=== PATIENT | female | born 1990 | race Caucasian/White ===

== ENCOUNTER → 2023-03-22 12:22 | Outpatient (CLI) | payer OTHER, SELFPAY ==
--- NOTE | 2023-03-22 | DI.US.S_ITS ---
PROCEDURE: US SOFT TISSUE HEAD AND NECK INDICATIONS: NECK LUMP TECHNIQUE: Real-time scanning was performed of the neck region of interest, with image documentation. COMPARISON: None. FINDINGS: There are 2 lumps felt in the neck. In the right lateral neck, there is a hypoechoic well-circumscribed ovoid lesion measuring 0.6 x 0.2 x 0.5 cm. No discrete echogenic hilum. No significant internal vascularity. In the left anterolateral neck, there is an isoechoic, well circumscribed ovoid lesion measuring 1.3 x 0.4 x 1.4 cm with no significant internal vascularity. IMPRESSION: 1. Right lateral neck palpable abnormality appears benign and likely corresponds to a normal lymph node. The characteristic echogenic hilum is not well seen; therefore, if the palpable abnormality persists, consider a repeat ultrasound in 1 month with cine clip to document stability. 2. Left anterolateral neck palpable abnormality likely corresponds to a benign lipoma/subcutaneous fat deposit. No suspicious features. Dictated by: Dez Carrington M.D. on 03/22/2023 at 14:20 Approved by: Dez Carrington M.D. on 03/22/2023 at 14:28
== END ==
PROVIDERS: Referring Provider Naturopath; Visit Provider Naturopath
DX: R22.1 Localized swelling, mass and lump, neck (principal)
CPT/HCPCS: 76536

== ENCOUNTER 2023-10-03 07:08 | Day surgery (SDC) | payer OTHER, SELFPAY ==
[2023-09-19 12:19] VITALS: BMI 23.6
[2023-10-03] VITALS (7 sets, daily range): BP systolic 118–129; BP diastolic 58–80; PULSE 60–67; RESP 11–17; TEMP 36.1–37.2; O2SAT 100; BMI 22.8
--- NOTE | 2023-10-03 | PATH_ITS ---
[facility] Accession Number: [id number] No. of containers..01 Tissue . 01 Material submitted: . neck - LEFT NECK MASS . 01 Diagnosis: LEFT NECK, EXCISION: Mature adipose tissue, consistent with lipoma. [facility] 10/09/2023 0926 Local . 01 Electronically signed: . Yaya Puga MD, Dermatopathologist NPI- [id number] . 01 Gross description: . LEFT NECK MASS: Received in formalin is 1 fragment of acosta soft tissue measuring 2.6 x 2.1 x 1.2 cm. Tissue is inked. Specimen is sectioned and submitted in tour sales representative sections in 2 cassettes. /NICOLE 10/06/2023 0004 Local . 01 Pathologist provided ICD-10: D17.9 . 01 CPT . 415582 Specimen Comment: A courtesy copy of this report has been sent to [phone] Performed at: 01 [facility] [address] [place] [address], [place], [place] [id number] MD Ralph Wyman MD Phone: [phone]
[2023-10-03] MEDS: ACETAMINOPHEN 325 MG TABLET 975 MG PO (08:08)
[2023-10-03] MEDS: LACTATED RINGERS 1,000 ML 42 ML IV (08:09)
--- NOTE | 2023-10-03 08:28 | PM.HP.1 ---
History of Present Illness History of Present Illness Date Patient Seen: 10/03/23 Time Patient Seen: 08:28 Chief complaint: Excision of soft tissue mass left neck Narrative: 32F with let neck soft tissue mass here for elective excision. No interval change in health. [facility] Medical History Asthma Social History household members: spouse Smoking Status: Never smoker alcohol intake: current Meds Home Medications and Allergies Home Medications Medication Instructions Recorded Confirmed Type albuterol sulfate 90 mcg/actuation 1 puff inhalation ONCE PRN wheeze 08/30/23 10/03/23 History aerosol inhaler beclomethasone dipropionate 40 40 mcg inhalation PRN PRN Wheezing 08/30/23 10/03/23 History mcg/actuation aerosol inhaler Allergies Allergy/AdvReac Type Severity Reaction Status Date / Time No Known Drug Allergies Allergy Verified 10/03/23 07:36 Exam Vital Signs (past 8 hours): - 10/03/23 07:40 Temperature 98.9 F Pulse Rate 63 Respiratory Rate 16 Blood Pressure 118/71 Pulse Oximetry 100 Oxygen Delivery Method Room Air Oxygen Delivery Method Room Air Narrative Exam Narrative: Gen-Adult woman alert and oriented Neck-4 cm soft tissue mass left neck marked with initials Assessment & Plan Assessment and plan (1) Neoplasm of unspecified behavior of bone, soft tissue, and skin: Status: Acute Assessment & Plan narrative: 32F with a soft tissue mass of left neck here for elective excision. Risks benefits alternatives reviewed. She provides her consent to proceed.
[2023-10-03] MEDS: CEFAZOLIN 2 GM/100 ML PREMIX 100 ML IV (08:41)
--- NOTE | 2023-10-03 08:51 | SUR.OPER ---
Supine on padded OR bed, head on pillow, right arm secured on padded arm boards at <90 degrees abduction, left arm tucked with soft cloth legs uncrossed, safety belt at thigh.
[2023-10-03] MEDS: BUPIVACAINE 0.25% (PF) VIAL 30 ML INJ (08:57)
--- NOTE | 2023-10-03 09:11 | P.OP_ITS ---
Operative Date/Time/Diagnoses Date of procedure: 10/03/23 Time of procedure: 09:11 Pre-op diagnosis: 4 cm soft tissue left neck mass Post-op diagnosis: same Procedure & Clinicians Procedure: Excision of 4 cm left neck mass Same procedure as scheduled: Yes Indications: Symptomatic enlarging left neck mass Surgeon: Wilberto Rahman Green Chain Off Bearer: Chacorta Calvo Anesthesia Type: General Operative Notes Findings: Finding is consistent with lipoma Specimen(s): other (Left neck mass) Estimated Blood Loss (mL): 5 Procedure in detail: Patient was brought to the operating room placed supine on the table. General anesthesia was induced and she was intubated with a LMA. She was then prepped and draped in sterile fashion. She received 2 g of Ancef prior to skin incision. Time-out was performed. 0.25% bupivacaine was infiltrated into the skin over the area of concern of the left neck. The soft tissue mass was readily palpable and superficial to the sternocleidomastoid. Incision over the soft tissue mass was made with a knife and the subcutaneous tissues were divided. The mass was encountered it was grasped and then it was dissected out circumferentially. Mass was then removed in its entirety and passed off the field as specimen, its appearance was consistent with a lipoma. Hemostasis was achieved. The subcutaneous tissue was closed with Vicryl suture and the skin closed Monocryl followed by the application of Dermabond. The sponge and instrument count was correct x2. She emerged from anesthesia was transferred to recovery in stable condition. Complications: none Post-operative Condition: stable Disposition: same day surgery
== END 2023-10-03 10:11 | disposition home or self-care (01) ==
PROVIDERS: PCP Naturopath; Referring Provider Surgery; Visit Provider Surgery
PROC: (CPT 21552; principal; 2023-10-03 08:15)
DX: D17.0 Benign lipomatous neoplasm of skin and subcutaneous tissue of head, face and neck (principal)
CPT/HCPCS: 21552; 82962; J0690; J1100; J2405; J2704; J3010